=== PATIENT | female | born 1945 | race Caucasian/White ===

== ENCOUNTER 2016-09-25 11:00 | Outpatient (RCR) | payer MEDICARE, BC ==
[~2016-09-25 11:00] MED LIST: AMBIEN 10MG10 MG PO; ARMOUR THYROID60 MG PO; FORTICAL200 IU/ACT NS; NORCO 325 MG-7.1 TAB PO; PROGESTERONE AL1 CRE TP; ROXICODONE 55 MG/TAB PO; TYLENOL 500MG500 MG PO
== END 2016-11-24 ==
LOC: WSOT
DX: M25.532 Pain in left wrist (principal)
CPT/HCPCS: G8987-GO; G8988-GO

== ENCOUNTER → 2017-06-11 | Outpatient (CLI) | payer MEDICARE, BC | LOC: MC.RAD 08:40 | DX: Z12.31 Encounter for screening mammogram for malignant neoplasm of breast (principal) ==

== ENCOUNTER 2020-02-14 08:45 | Outpatient (RCR) | payer MEDICARE, BC | END 2020-02-15 | disposition home or self-care (01) | LOC: WSOT | DX: S52.571D Other intraarticular fracture of lower end of right radius, subsequent encounter for closed fracture with routine healing (principal) ==

== ENCOUNTER 2020-03-01 09:00 | Outpatient (RCR) | payer MEDICARE, BC | END 2020-03-05 | disposition home or self-care (01) | LOC: WSOT | DX: S52.571A Other intraarticular fracture of lower end of right radius, initial encounter for closed fracture (principal) ==

== ENCOUNTER 2020-03-20 10:00 | Outpatient (RCR) | payer MEDICARE, BC | END 2020-03-22 09:05 | disposition home or self-care (01) | LOC: WSOT 10:00 | DX: S52.91XA Unspecified fracture of right forearm, initial encounter for closed fracture (principal) ==